=== PATIENT | female | born 1970 | race Caucasian/White ===

== ENCOUNTER 2017-03-14 20:35 | Emergency (ER) | payer BC ==
[~2017-03-14] VITALS: Ht 162.6 cm; Wt 63.5 kg
--- NOTE | 2017-03-14 20:55 | NUR ---
TO BED 3 A 46 YO FEMALE PT C/O HEADACHE AND BEING LIGHTHEADED X 2 HOURS, PT DENIES INJURY OR TRAUMA. PATIENT IS AAOX4, NAD NOTED, VSS, AMBULATORY WITH STEADY GAIT. COMFORT MEASURES RENDERED. AWAITING FOR ER MD OLIVIA.
--- NOTE | 2017-03-14 21:11 | NUR ---
Truong Shelton at bedside to evaluate patient.
[2017-03-14] MEDS ORDERED: IV NS 0.9% 1,000 ML BAG IV ONE (21:30)
--- NOTE | 2017-03-14 21:40 | NUR ---
started a saline lock on the lac g20, blood drawn and sent to lab.
[2017-03-14 21:41] LABS: BASOPHILS % (AUTO) 0.6 % (0.0-2.0); EOSINOPHILS # (AUTO) 0.2 /CMM (0.0-0.7); EOSINOPHILS % (AUTO) 2.1 % (0.0-6.0); HEMATOCRIT 40 % (33-45); HEMOGLOBIN 12.7 g/dL (11.5-14.8); LYMPHOCYTES # (AUTO) 1.2 /CMM (0.8-4.8); LYMPHOCYTES % (AUTO) 15.2 % (20.0-44.0); MEAN CORPUSCULAR HEMOGLOBIN 22 PG (26.0-33.0); MEAN CORPUSCULAR HGB CONC 32 g/dl (31.0-36.0); MEAN CORPUSCULAR VOLUME 69 fL (82-100); MONOCYTES # (AUTO) 0.4 /CMM (0.1-1.30); MONOCYTES % (AUTO) 4.9 % (2.0-12.0); NEUTROPHILS # (AUTO) 6.3 /CMM (1.8-8.9); NEUTROPHILS % (AUTO) 77.2 % (43.0-81.0); PLATELET COUNT (AUTO) 311 /CMM (150-450); RDW COEFFICIENT OF VARIATION 14.6 (11.5-15.0); RED BLOOD CELL COUNT(AUTO) 5.83 MIL/uL (4.0-5.2); WHITE BLOOD COUNT (AUTO) 8.1 K/uL (4.3-11.0)
[2017-03-14 21:51] LABS: CREATININE 0.7 mg/dL (0.6-1.3); POTASSIUM 3.4 mmol/L (3.5-5.1)
[2017-03-14 21:55] LABS: INR 0.93 (0.87-1.13); PROTHROMBIN TIME 9.7 SECS (9.5-12.7)
[2017-03-14 22:28] LABS: LYMPHOCYTES % (MANUAL) 7 % (16-48); MONOCYTES % (MANUAL) 6 % (0-11.0); NEUTROPHILS % (MANUAL) 87 (42-76)
[2017-03-14 22:48] LABS: APPEARANCE,URINE CLEAR (CLEAR); BILIRUBIN,URINE NEGATIVE (NEGATIVE); BLOOD, URINE NEGATIVE Ery/uL (NEGATIVE); COLOR,URINE YELLOW (YELLOW); KETONES,URINE NEGATIVE (NEGATIVE); LEUKOCYTE ESTERASE ,URINE NEGATIVE (NEGATIVE); NITRITE, URINE NEGATIVE (NEGATIVE); PH,URINE 6.5 (5.0-8.0); PROTEIN,URINE NEGATIVE (NEGATIVE); UGLUCOSE NEGATIVE (NEGATIVE); UROBILINOGEN,URINE 0.2 EU/dL (0.2)
--- NOTE | 2017-03-14 22:49 | NUR ---
Patient reports feeling better. IV removed. Catheter intact and site benign. Pressure and 4x4 applied to site. No bleeding noted. Patient discharged to home in stable condition. Written and verbal after care instructions given. Patient verbalizes understanding of instruction. Patient is ambulatory with steady gait, accompanied by family. no further complaints.
[2017-03-14 22:50] VITALS: BP 128/74
== END 2017-03-14 22:50 | disposition home or self-care (01) ==
LOC: ER 20:37
DX: R51 Headache (principal); R42 Dizziness and giddiness; R11.0 Nausea; H53.149 Visual discomfort, unspecified
CPT/HCPCS: 36415; 80048; 81001; 84703; 85025; 85730; 96360; 99284; A4606; J7030; Z7610; 81000-TC